=== PATIENT | male | born 1950 | race Caucasian/White ===

== ENCOUNTER 2017-10-20 18:21 | Inpatient (IN) | payer MEDICARE ==
[~2017-10-20] VITALS: Ht 180.3 cm; Wt 71.8 kg
[2017-10-20 19:08] VITALS: BP 165/89
[2017-10-20] MEDS ORDERED: Z GUARD REMEDY 2 OZ OINT TP PRN (19:30)
[2017-10-20] MEDS ORDERED: ZOLPIDEM TARTRATE 5 MG TABLET PO PRN (19:30)
[2017-10-20] MEDS ORDERED: ACETAMINOPHEN 325 MG TABLET PO PRN (19:30)
[2017-10-20] MEDS ORDERED: ONDANSETRON HCL/PF 4 MG/2 ML VIAL IVP PRN (19:30)
[2017-10-20] MEDS ORDERED: MAG HYDROX/AL HYDROX/SIMETH 30 ML UDC PO PRN (19:30)
[2017-10-20] MEDS ORDERED: MAGNESIUM HYDROXIDE 30 ML UDC PO PRN (19:30)
[2017-10-20 20:00] VITALS: BP 129/73
[2017-10-20] MEDS ORDERED: HYDR-4076 PO (20:44)
[2017-10-20] MEDS ORDERED: THIA100T70 PO (20:44)
[2017-10-20] MEDS ORDERED: SEVE800T8 PO (20:44)
[2017-10-20] MEDS ORDERED: ATOR20TA PO (20:44)
[2017-10-20] MEDS ORDERED: WARF2TAB57 PO (20:44)
[2017-10-20] MEDS ORDERED: MULT1TAB73 PO (20:44)
[2017-10-20] MEDS ORDERED: DOCU-141 PO (20:44)
[2017-10-20] MEDS ORDERED: LEVO100T9 PO (20:44)
[2017-10-20] MEDS ORDERED: ISOS60TA4 PO (20:44)
[2017-10-20] MEDS ORDERED: AMIO200T4 PO (20:44)
[2017-10-20] MEDS ORDERED: FOLI1TAB16 PO (20:44)
[2017-10-20] MEDS ORDERED: CLOP75TA15 PO (20:44)
[2017-10-20] MEDS ORDERED: ALLO100T PO (20:44)
[2017-10-20] MEDS ORDERED: LISI10TA5 PO (20:44)
[2017-10-20 21:11] VITALS: BP 129/73
[2017-10-21] VITALS: BP 147/79
[2017-10-21 04:00] VITALS: BP 169/83
[2017-10-21 06:17] LABS: BASOPHILS % (AUTO) 0.3 % (0.0-2.0); EOSINOPHILS % (AUTO) 6.4 % (0.0-6.0); HEMATOCRIT 44 % (39-51); HEMOGLOBIN 14.1 g/dL (13.5-17.5); LYMPHOCYTES # (AUTO) 1.1 /CMM (0.8-4.8); LYMPHOCYTES % (AUTO) 16.4 % (20.0-44.0); MEAN CORPUSCULAR HEMOGLOBIN 33 PG (26.0-33.0); MEAN CORPUSCULAR HGB CONC 32 g/dl (31.0-36.0); MEAN CORPUSCULAR VOLUME 103 fL (80-96); MONOCYTES # (AUTO) 0.3 /CMM (0.1-1.30); MONOCYTES % (AUTO) 5.1 % (2.0-12.0); NEUTROPHILS # (AUTO) 4.9 /CMM (1.8-8.9); NEUTROPHILS % (AUTO) 71.8 % (43.0-81.0); PLATELET COUNT (AUTO) 161 /CMM (150-450); RDW COEFFICIENT OF VARIATION 18.8 (11.5-15.0); RED BLOOD CELL COUNT(AUTO) 4.25 MIL/uL (4.5-6.0); WHITE BLOOD COUNT (AUTO) 6.8 K/uL (4.3-11.0)
[2017-10-21 06:31] LABS: CALCIUM, SERUM 8.8 mg/dL (8.5-10.1); CREATININE 5.6 mg/dL (0.6-1.3); PHOSPHORUS 6.1 mg/dL (2.5-4.9); POTASSIUM 4.1 mmol/L (3.5-5.1)
[2017-10-21 08:00] VITALS: BP 139/73
[2017-10-21 08:01] LABS: INR 1.05 (0.87-1.13)
[2017-10-21] MEDS: MULTIVITAMINS,THERAGRAN 1 UDTAB TABLET PO SCH (08:46)
[2017-10-21] MEDS: DOCUSATE SODIUM 100 MG CAPSULE PO SCH (08:47)
[2017-10-21] MEDS: hydrALAZINE HCL 25 MG TABLET PO SCH ×3 (08:47→17:17)
[2017-10-21] MEDS: SEVELAMER CARBONATE 800 MG TABLET PO SCH (08:47)
[2017-10-21] MEDS: ISOSORBIDE MONONITRATE (30MG) 30 MG TAB.SR.24H PO SCH (08:47)
[2017-10-21] MEDS: CLOPIDOGREL BISULFATE 75 MG TABLET PO SCH (08:48)
[2017-10-21] MEDS: AMIODARONE HCL 200 MG TABLET PO SCH (08:48)
[2017-10-21] MEDS: LEVOTHYROXINE SODIUM 100 MCG TABLET PO SCH (08:48)
[2017-10-21] MEDS: HYDROCODONE/APAP 5/325MG 1 EACH TABLET PO PRN ×3 (08:49→22:31)
[2017-10-21] MEDS: ALLOPURINOL 100 MG TABLET PO SCH (08:49)
[2017-10-21] MEDS: FOLIC ACID 1 MG TABLET PO SCH (08:49)
[2017-10-21] MEDS: THIAMINE HCL 100 MG TABLET PO SCH (08:49)
[2017-10-21] MEDS: LISINOPRIL (10MG) 10 MG TABLET PO SCH (08:50)
[2017-10-21 09:00] VITALS: BP 139/73
[2017-10-21] MEDS ORDERED: Medication Not On Formulary EA (Multivitamins 1 EACH) PO SCH (09:00)
[2017-10-21] MEDS ORDERED: Medication Not On Formulary EA (Atorvastatin Calcium (Lipitor) 20 MG) PO SCH (09:00)
[2017-10-21] MEDS ORDERED: Medication Not On Formulary EA (Isosorbide Mononitrate 60 MG) PO SCH (09:00)
[2017-10-21] MEDS ORDERED: LORAZEPAM INJ 2 MG/ML VIAL IV PRN (10:30)
[2017-10-21 16:00] VITALS: BP 144/71
[2017-10-21] MEDS: WARFARIN SODIUM 2 MG TABLET PO SCH (17:18)
[2017-10-21 20:00] VITALS: BP 143/71
[2017-10-21] MEDS ORDERED: LEVETIRACETAM (500MG) 500 MG in IV NS 0.9% 100 ML IV SCH (20:00)
[2017-10-21] MEDS: SIMVASTATIN 40 MG TABLET PO SCH (21:05)
[2017-10-22] VITALS: BP 119/71
[2017-10-22 04:00] VITALS: BP 128/73
[2017-10-22 06:37] LABS: BASOPHILS % (AUTO) 0.2 % (0.0-2.0); EOSINOPHILS % (AUTO) 9.5 % (0.0-6.0); HEMATOCRIT 44 % (39-51); HEMOGLOBIN 14.1 g/dL (13.5-17.5); LYMPHOCYTES # (AUTO) 1.1 /CMM (0.8-4.8); LYMPHOCYTES % (AUTO) 18.5 % (20.0-44.0); MEAN CORPUSCULAR HEMOGLOBIN 33 PG (26.0-33.0); MEAN CORPUSCULAR HGB CONC 32 g/dl (31.0-36.0); MEAN CORPUSCULAR VOLUME 102 fL (80-96); MONOCYTES # (AUTO) 0.4 /CMM (0.1-1.30); MONOCYTES % (AUTO) 6.4 % (2.0-12.0); NEUTROPHILS # (AUTO) 3.9 /CMM (1.8-8.9); NEUTROPHILS % (AUTO) 65.4 % (43.0-81.0); PLATELET COUNT (AUTO) 188 /CMM (150-450); RDW COEFFICIENT OF VARIATION 18.9 (11.5-15.0); RED BLOOD CELL COUNT(AUTO) 4.29 MIL/uL (4.5-6.0); WHITE BLOOD COUNT (AUTO) 5.9 K/uL (4.3-11.0)
[2017-10-22 07:00] LABS: CALCIUM, SERUM 8.8 mg/dL (8.5-10.1); CREATININE 6.4 mg/dL (0.6-1.3); POTASSIUM 4.3 mmol/L (3.5-5.1)
[2017-10-22 08:00] VITALS: BP 150/90
[2017-10-22] MEDS ORDERED: ACET-73 PO (08:07)
[2017-10-22] MEDS: hydrALAZINE HCL 25 MG TABLET PO SCH ×3 (09:00→17:00)
[2017-10-22] MEDS: DOCUSATE SODIUM 100 MG CAPSULE PO SCH (10:55)
[2017-10-22] MEDS: SEVELAMER CARBONATE 800 MG TABLET PO SCH (10:55)
[2017-10-22] MEDS: THIAMINE HCL 100 MG TABLET PO SCH (10:56)
[2017-10-22] MEDS: HYDROCODONE/APAP 5/325MG 1 EACH TABLET PO PRN ×2 (10:56→22:44)
[2017-10-22] MEDS: MULTIVITAMINS,THERAGRAN 1 UDTAB TABLET PO SCH (10:56)
[2017-10-22] MEDS: LEVOTHYROXINE SODIUM 100 MCG TABLET PO SCH (10:56)
[2017-10-22] MEDS: CLOPIDOGREL BISULFATE 75 MG TABLET PO SCH (10:56)
[2017-10-22] MEDS: FOLIC ACID 1 MG TABLET PO SCH (10:56)
[2017-10-22] MEDS: ALLOPURINOL 100 MG TABLET PO SCH (10:56)
[2017-10-22 10:59] LABS: INR 1.03 (0.87-1.13)
[2017-10-22 16:00] VITALS: BP 161/76
[2017-10-22] MEDS: WARFARIN SODIUM 2 MG TABLET PO SCH (17:00)
[2017-10-22 20:00] VITALS: BP 154/84
[2017-10-22] MEDS: MUPIROCIN OINT 2% 22 GM TUBE SCH (21:00)
[2017-10-22] MEDS: AMIODARONE HCL 200 MG TABLET PO SCH (21:38)
[2017-10-22] MEDS: SIMVASTATIN 40 MG TABLET PO SCH (21:38)
[2017-10-22] MEDS: ISOSORBIDE MONONITRATE (30MG) 30 MG TAB.SR.24H PO SCH (23:23)
[2017-10-23] VITALS: BP 142/89
[2017-10-23] MEDS: LISINOPRIL (10MG) 10 MG TABLET PO SCH ×2 (00:30→08:08)
[2017-10-23 04:00] VITALS: BP 134/78
[2017-10-23] MEDS: HYDROCODONE/APAP 5/325MG 1 EACH TABLET PO PRN ×2 (06:06→15:44)
[2017-10-23 06:25] LABS: BASOPHILS % (AUTO) 0.3 % (0.0-2.0); EOSINOPHILS % (AUTO) 10.7 % (0.0-6.0); HEMATOCRIT 45 % (39-51); HEMOGLOBIN 14.1 g/dL (13.5-17.5); LYMPHOCYTES # (AUTO) 0.9 /CMM (0.8-4.8); LYMPHOCYTES % (AUTO) 17.1 % (20.0-44.0); MEAN CORPUSCULAR HEMOGLOBIN 32 PG (26.0-33.0); MEAN CORPUSCULAR HGB CONC 31 g/dl (31.0-36.0); MEAN CORPUSCULAR VOLUME 103 fL (80-96); MONOCYTES # (AUTO) 0.4 /CMM (0.1-1.30); NEUTROPHILS # (AUTO) 3.6 /CMM (1.8-8.9); NEUTROPHILS % (AUTO) 64.9 % (43.0-81.0); PLATELET COUNT (AUTO) 184 /CMM (150-450); RDW COEFFICIENT OF VARIATION 18.7 (11.5-15.0); RED BLOOD CELL COUNT(AUTO) 4.42 MIL/uL (4.5-6.0); WHITE BLOOD COUNT (AUTO) 5.6 K/uL (4.3-11.0)
[2017-10-23 06:42] LABS: CREATININE 4.7 mg/dL (0.6-1.3); POTASSIUM 4.1 mmol/L (3.5-5.1)
[2017-10-23] MEDS: LEVOTHYROXINE SODIUM 100 MCG TABLET PO SCH (07:19)
[2017-10-23 08:00] VITALS: BP 137/73
[2017-10-23] MEDS: AMIODARONE HCL 200 MG TABLET PO SCH (08:08)
[2017-10-23] MEDS: CLOPIDOGREL BISULFATE 75 MG TABLET PO SCH (08:08)
[2017-10-23] MEDS: SEVELAMER CARBONATE 800 MG TABLET PO SCH (08:08)
[2017-10-23] MEDS: ALLOPURINOL 100 MG TABLET PO SCH (08:08)
[2017-10-23] MEDS: hydrALAZINE HCL 25 MG TABLET PO SCH ×2 (08:08→12:11)
[2017-10-23] MEDS: MULTIVITAMINS,THERAGRAN 1 UDTAB TABLET PO SCH (08:08)
[2017-10-23] MEDS: DOCUSATE SODIUM 100 MG CAPSULE PO SCH (08:08)
[2017-10-23] MEDS: ISOSORBIDE MONONITRATE (30MG) 30 MG TAB.SR.24H PO SCH (08:09)
[2017-10-23] MEDS: FOLIC ACID 1 MG TABLET PO SCH (08:09)
[2017-10-23] MEDS: THIAMINE HCL 100 MG TABLET PO SCH (08:10)
[2017-10-23] MEDS: MUPIROCIN OINT 2% 22 GM TUBE SCH (08:13)
[2017-10-23] MEDS ORDERED: THIA100T70 PO (08:53)
[2017-10-23 12:28] LABS: INR 1.03 (0.87-1.13)
[2017-10-23 15:41] VITALS: BP 145/79
== END 2017-10-23 16:07 | disposition home or self-care (01) | DRG 896 ==
LOC: TELE 18:36
PROC: 5A1D70Z Performance of Urinary Filtration, Intermittent, Less than 6 Hours Per Day (ICD-10-PCS; principal; 2017-10-22)
PROC: 4A00X4Z Measurement of Central Nervous Electrical Activity, External Approach (ICD-10-PCS; 2017-10-22)
DX: F10.288 Alcohol dependence with other alcohol-induced disorder (principal); N18.6 End stage renal disease; D68.59 Other primary thrombophilia; R56.9 Unspecified convulsions; I25.5 Ischemic cardiomyopathy; Z99.2 Dependence on renal dialysis; Z79.01 Long term (current) use of anticoagulants; M10.9 Gout, unspecified; F17.210 Nicotine dependence, cigarettes, uncomplicated; F03.90 Unspecified dementia, unspecified severity, without behavioral disturbance, psychotic disturbance, mood disturbance, and anxiety; E03.9 Hypothyroidism, unspecified; E78.5 Hyperlipidemia, unspecified; I48.91 Unspecified atrial fibrillation; I25.10 Atherosclerotic heart disease of native coronary artery without angina pectoris; Z95.0 Presence of cardiac pacemaker
CPT/HCPCS: 36415; 70450-TC; 80048-TC; 80061-TC; 82542; 83735-TC; 84100-TC; 85025-TC; 85610-TC; 87081-TC; 90935-TC; 95819-TC; J1953; J7030

== ENCOUNTER 2018-04-13 00:15 | Inpatient (IN) | payer MEDICARE, MEDICAID ==
[~2018-04-13] VITALS: Ht 185.4 cm; Wt 65.3 kg
[~2018-04-13 00:15] MED LIST: ACET-73 PO; ALLO100T PO; AMIO200T4 PO; ATOR20TA PO; CLOP75TA15 PO; DOCU-141 PO; FOLI1TAB16 PO; HYDR-4076 PO; ISOS60TA4 PO; LEVO100T9 PO; LISI10TA5 PO; MULT1TAB73 PO; SEVE800T8 PO; THIA100T70 PO; WARF2TAB57 PO
[2018-04-13 01:30] VITALS: BP 161/79
--- NOTE | 2018-04-13 01:30 | NUR ---
BLADE BENDER FURNACE TENDER NOTES RECEIVED PT FROM JOANNE, PT C/O FOR SOB, PT IS A&OX3. SR ON TELE HR 83. R AC #20 S/L, L UE AV FISTULA FOR HD. TEXT MARTA RE PTS ADMISSIONS ORDERS. PT ORIENTED TO ROOM. ALL NEED ANTICIPATED AND MET.PLAN OF CARE DISCUSSED WITH PT. BED IN LOW LOCKED POSITION, CALL WITH IN REACH. WILL CONT TO MONITOR.
[2018-04-13] MEDS: IPRATROPIUM NEB FS 0.5 MG/2.5 ML AMPUL.NEB NEB PRN ×3 (02:29→18:01)
[2018-04-13] MEDS: ALBUTEROL FS 2.5 MG/0.5 ML VIAL.NEB NEB PRN ×3 (02:29→18:01)
[2018-04-13] MEDS ORDERED: MAGNESIUM HYDROXIDE 30 ML UDC PO PRN (02:30)
[2018-04-13] MEDS ORDERED: HYDROCODONE/APAP 5/325MG 1 EACH TABLET PO PRN (02:30)
[2018-04-13] MEDS ORDERED: MORPHINE SULFATE INJ 4 MG/ML DISP.SYRIN IV PRN (02:30)
[2018-04-13] MEDS ORDERED: TEMAZEPAM 15 MG CAPSULE PO PRN ×2 (02:30→14:30)
[2018-04-13] MEDS ORDERED: ACETAMINOPHEN 325 MG TABLET PO PRN (02:30)
[2018-04-13] MEDS ORDERED: MAG HYDROX/AL HYDROX/SIMETH 30 ML UDC PO PRN (02:30)
[2018-04-13] MEDS ORDERED: ONDANSETRON HCL/PF 4 MG/2 ML VIAL IVP PRN (02:30)
[2018-04-13 04:00] VITALS: BP 153/89
--- NOTE | 2018-04-13 06:26 | NUR ---
RN CLOSING NO PT LYING IN BED ASLEEP, NO SOB AND ACUTE DISTRESS NOTED. ADMISSION COMPLETED. ALL NEEDS ANTICIPATED AND MET. SAFETY IS MAINTAINED AT ALL TIMES. BED IS IN LOW POSITION AND LOCKED. WILL ENDORSED TO AM SHIFT RN FOR CARLOS.
[2018-04-13 07:40] LABS: BASOPHILS % (AUTO) 0.7 % (0.0-2.0); EOSINOPHILS % (AUTO) 2.6 % (0.0-6.0); HEMATOCRIT 33 % (39-51); HEMOGLOBIN 11.2 g/dL (13.5-17.5); LYMPHOCYTES # (AUTO) 0.7 /CMM (0.8-4.8); LYMPHOCYTES % (AUTO) 13.8 % (20.0-44.0); MEAN CORPUSCULAR HGB CONC 34 g/dl (31.0-36.0); MEAN CORPUSCULAR VOLUME 102 fL (80-96); MONOCYTES # (AUTO) 0.3 /CMM (0.1-1.30); MONOCYTES % (AUTO) 6.4 % (2.0-12.0); NEUTROPHILS # (AUTO) 4.1 /CMM (1.8-8.9); NEUTROPHILS % (AUTO) 76.5 % (43.0-81.0); PLATELET COUNT (AUTO) 128 /CMM (150-450); RED BLOOD CELL COUNT(AUTO) 3.25 MIL/uL (4.5-6.0); WHITE BLOOD COUNT (AUTO) 5.3 K/uL (4.3-11.0)
[2018-04-13 08:00] VITALS: BP 159/100
--- NOTE | 2018-04-13 08:00 | NUR ---
DOYLE RN NOTE RECEIVEDIN BED , ALERT ,ORIENTED X3 , PT C/O FOR SOB, PT IS A&OX3. SR ON TELE HR 89. R AC #20 S/L, L UE AV FISTULA FOR HD. . ALL NEED ANTICIPATED AND MET.PLAN OF CARE DISCUSSED WITH PT. BED IN LOW LOCKED POSITION, CALL WITH IN REACH. WILL CONT TO MONITOR. CALLED RT TO DO BREATHING TX WILL F\U,
[2018-04-13 08:01] LABS: ALBUMIN 3.3 g/dL (3.4-5.0); BILIRUBIN,DIRECT 0.1 mg/dL (0.0-0.2); BILIRUBIN,TOTAL 0.5 mg/dL (0.2-1.0); CALCIUM, SERUM 8.8 mg/dL (8.5-10.1); CREATININE 6.5 mg/dL (0.6-1.3); MAGNESIUM 2.3 mg/dL (1.8-2.4); PHOSPHORUS 4.2 mg/dL (2.5-4.9); POTASSIUM 4.5 mmol/L (3.5-5.1); TOTAL PROTEIN, SERUM 6.2 g/dL (6.4-8.2)
[2018-04-13 08:05] LABS: THYROID STIMULATING HORMONE 6.5 uIU/mL (0.358-3.74)
[2018-04-13] MEDS ORDERED: ACET-868 PO (08:08)
[2018-04-13] MEDS ORDERED: RIVA10TA PO (08:08)
[2018-04-13] MEDS ORDERED: DONE5TAB34 PO (08:08)
[2018-04-13] MEDS ORDERED: TEMA15CA PO (08:08)
[2018-04-13] MEDS ORDERED: ESCI10TA PO (08:08)
[2018-04-13] MEDS ORDERED: QUET25TA PO (08:08)
[2018-04-13] MEDS ORDERED: METO-358 PO (08:08)
[2018-04-13] MEDS ORDERED: RANI150T8 PO (08:08)
[2018-04-13] MEDS ORDERED: CALC667C6 PO (08:08)
[2018-04-13] MEDS ORDERED: FLUT16SP16 BNOSTRILS (08:08)
[2018-04-13] MEDS ORDERED: ALBU18HF2 IH (08:08)
[2018-04-13] MEDS ORDERED: FOLI0.8T2 PO (08:09)
[2018-04-13] MEDS: PANTOPRAZOLE 40 MG TABLET.DR PO SCH (08:27)
--- NOTE | 2018-04-13 10:07 | NUR ---
DOYLE RN NOTE 2DECHO DONE CHEST X RAY DONE ORDERED
--- NOTE | 2018-04-13 11:44 | NUR ---
FLUID JET CUTTER OPERATOR NOTE DR LEBRON AWARE THAT EF 27% [id number]
--- NOTE | 2018-04-13 12:39 | NUR ---
MS RN NOTE SEEN BY DR ROBERT DISASTER RESPONSE DIRECTOR WILL BE HAVING HD TODAY
[2018-04-13] MEDS: METOPROLOL SUCCINATE 50 MG TAB.SR.24H PO SCH (14:34)
--- NOTE | 2018-04-13 14:35 | NUR ---
MS RN NOTE LILIANE ALBERTO RN HVAC DESIGN MECHANICAL ENGINEER ART BEDSIDE WITH NEW ORDER GIVEN
--- NOTE | 2018-04-13 15:19 | NUR ---
MS RN NOTE MRSA SWAB COLLECTED ORDERED
--- NOTE | 2018-04-13 15:32 | NUR ---
MS RN NOTE SPOKE WITH DOROTHY HD NURSE STATED HD NURSE WILL BE SOON
[2018-04-13 16:00] VITALS: BP 148/83
[2018-04-13] MEDS: LISINOPRIL (10MG) 10 MG TABLET PO SCH (16:30)
[2018-04-13] MEDS ORDERED: LORAZEPAM INJ 2 MG/ML VIAL IV PRN (16:30)
[2018-04-13] MEDS ORDERED: hydrALAZINE HCL 10 MG TABLET PO PRN (16:30)
--- NOTE | 2018-04-13 16:30 | NUR ---
MS RN NOTE WILL HAVE HD HOLD BP MEDS, PRINIVIL
[2018-04-13] MEDS: CALCIUM ACETATE 667 MG TABLET PO SCH (17:16)
--- NOTE | 2018-04-13 17:57 | NUR ---
MS RN NOTE NEW HL ON RT FA ARNAUD 22 INSERTED WITH GOOD BLOOD RETURN
--- NOTE | 2018-04-13 18:11 | NUR ---
MS RN NOTE C\O SOB, CALLED RT DOING BREATHING TX ORDERED ,WILL F\U
--- NOTE | 2018-04-13 18:34 | NUR ---
MS RN NOTE HAVING DINNER , ALL NEEDS ATTENDED , CALL LIGHT WITHIN REACH , NOT IN DISTRESS
--- NOTE | 2018-04-13 19:12 | NUR ---
MS RN NOTE ON HD AT THIS TIME
[2018-04-13 20:00] VITALS: BP 157/79
--- NOTE | 2018-04-13 20:00 | NUR ---
RN INITIAL NOTE RECEIVED PT IN BED, ALERT ,ORIENTED X3, HD IN PROCESS, R AC #20 S/L, L UE AV FISTULA FOR HD. ALL NEED ANTICIPATED AND MET. PLAN OF CARE DISCUSSED WITH PT. BED IN LOW LOCKED POSITION, CALL WITH IN REACH. WILL CONT TO MONITOR.
[2018-04-13] MEDS: HEPARIN SODIUM, PORCINE 5000 UNITS/1 ML VIAL SQ SCH (21:31)
[2018-04-13] MEDS: ATORVASTATIN 10 MG TABLET PO SCH (21:32)
[2018-04-13] MEDS: QUETIAPINE FUMARATE 25 MG TABLET PO SCH (21:32)
--- NOTE | 2018-04-14 06:41 | NUR ---
RN CLOSING NOTES PT LYING IN BED ASLEEP, NO SOB AND ACUTE DISTRESS NOTED. ALL NEEDS ANTICIPATED AND MET. ALL DUE MEDS GIVEN. 2000L REMOVED VIE HD. PT REFUSED AM LABS AND VS. PT STATED HE DOSE NOT WANT TO THE DISTURBED THIS EARLY. SAFETY IS MAINTAINED AT ALL TIMES. BED IS IN LOW POSITION AND LOCKED. WILL ENDORSED TO AM SHIFT RN FOR CARLOS.
[2018-04-14 08:00] VITALS: BP 137/91
--- NOTE | 2018-04-14 08:00 | NUR ---
RN NOTES RECEIVED PATIENT IN THE BED A/O X3/4. PATIENT ON O2-2L NC. PATIENT HAS NO ACUTE RESPIRATORY DISTRESS, V/S TAKEN STABLE. ENCOURAGED TO EXPRESS NEEDS AND CONCERNS. PATIENT HAS AVF ON LEFT UPPER ARM. PATIENT USING URINAL AND BATHROOM.SCHEDULED MEDICATION ADMINISTERED. CALL LIGHT WITHIN TO REACH, SAFETY PRECAUTION MAINTAINED ALL THE TIME.
[2018-04-14 08:13] LABS: EOSINOPHILS % (AUTO) 7.3 % (0.0-6.0); HEMATOCRIT 32 % (39-51); HEMOGLOBIN 10.8 g/dL (13.5-17.5); LYMPHOCYTES % (AUTO) 23.5 % (20.0-44.0); MEAN CORPUSCULAR HGB CONC 34 g/dl (31.0-36.0); MEAN CORPUSCULAR VOLUME 103 fL (80-96); MONOCYTES # (AUTO) 0.3 /CMM (0.1-1.30); MONOCYTES % (AUTO) 8.3 % (2.0-12.0); NEUTROPHILS # (AUTO) 2.4 /CMM (1.8-8.9); NEUTROPHILS % (AUTO) 59.9 % (43.0-81.0); PLATELET COUNT (AUTO) 116 /CMM (150-450); RED BLOOD CELL COUNT(AUTO) 3.13 MIL/uL (4.5-6.0); WHITE BLOOD COUNT (AUTO) 4.1 K/uL (4.3-11.0)
[2018-04-14 08:18] LABS: ALBUMIN 3.1 g/dL (3.4-5.0); BILIRUBIN,TOTAL 0.7 mg/dL (0.2-1.0); CREATININE 5.5 mg/dL (0.6-1.3); MAGNESIUM 2.1 mg/dL (1.8-2.4); PHOSPHORUS 3.5 mg/dL (2.5-4.9); POTASSIUM 4.3 mmol/L (3.5-5.1); TOTAL PROTEIN, SERUM 6.1 g/dL (6.4-8.2)
[2018-04-14] MEDS ORDERED: RIVAROXABAN 10 MG TABLET PO SCH (09:00)
--- NOTE | 2018-04-14 09:27 | NUR ---
rn notes administered narco 5/325 mg po prn for generalized pain 08/27 per patient request, v/s stable, encouraged to take po fluids as tolearted, call light within to reach, safety precaution maintained all the time.
[2018-04-14] MEDS: THIAMINE HCL 100 MG TABLET PO SCH (09:43)
[2018-04-14] MEDS: SEVELAMER CARBONATE 800 MG TABLET PO SCH (09:44)
[2018-04-14] MEDS: CLOPIDOGREL BISULFATE 75 MG TABLET PO SCH (09:44)
[2018-04-14] MEDS: LISINOPRIL (10MG) 10 MG TABLET PO SCH ×3 (09:45→19:32)
[2018-04-14] MEDS: FAMOTIDINE (20 MG) 20 MG TABLET PO SCH (09:46)
[2018-04-14] MEDS: ALLOPURINOL 100 MG TABLET PO SCH (09:46)
[2018-04-14] MEDS: ESCITALOPRAM OXALATE (10 MG) 10 MG TABLET PO SCH (09:46)
[2018-04-14] MEDS: METOPROLOL SUCCINATE 50 MG TAB.SR.24H PO SCH ×2 (09:46→15:39)
[2018-04-14] MEDS: DOCUSATE SODIUM 100 MG CAPSULE PO SCH (09:46)
[2018-04-14] MEDS: PANTOPRAZOLE 40 MG TABLET.DR PO SCH (09:46)
[2018-04-14] MEDS: DONEPEZIL 5 MG TABLET PO SCH (09:47)
[2018-04-14] MEDS: FOLIC ACID 1 MG TABLET PO SCH (09:47)
[2018-04-14] MEDS: LEVOTHYROXINE SODIUM 100 MCG TABLET PO SCH (09:47)
[2018-04-14] MEDS: HEPARIN SODIUM, PORCINE 5000 UNITS/1 ML VIAL SQ SCH ×2 (09:55→21:37)
[2018-04-14] MEDS: CALCIUM ACETATE 667 MG TABLET PO SCH ×3 (09:59→19:32)
--- NOTE | 2018-04-14 12:00 | NUR ---
RN NOTES MEDICATION WERE ADMINISTERED FOR PAIN EFFECTIVE, PATIENT RESTING IN THE BED. CONTINUED MONITORING.
[2018-04-14] MEDS ORDERED: NEPRO VAN 237 ML CAN PO PRN (15:00)
[2018-04-14 16:00] VITALS: BP_SYST 155; BP_SYST 157; BP_DIAS 88; BP_DIAS 97
--- NOTE | 2018-04-14 18:30 | NUR ---
RN NOTES PATIENT STABLE, REFUSED PAIN AT THIS TIME, SCHEDULED MEDICATION ADMINISTERED, CALL LIGHT WITHIN TO REACH, SAFETY PRECAUTION MAINTAINED ALL THE BRYS[place]. ENDORSED ONCOMING NURSE FOR PLAN OF CARE.
[2018-04-14 20:00] VITALS: BP 160/86
--- NOTE | 2018-04-14 21:09 | NUR ---
MS RN NOTES RECEIVED PT ON BED. A/O X4. ON NASAL CANNULA 2LPM SATURATING WELL. NO RESPIRATORY DISTRESS NOTED. IV ACCESS ON RAC G22. PATENT AND INTACT. HEAD OF BED ELEVATED. SIDE RAILS UP. CALL LIGHT WITHIN REACH. BED ALARM ON. WILL CONTINUE TO MONITOR PT CLOSELY.
[2018-04-14] MEDS: ATORVASTATIN 10 MG TABLET PO SCH (21:37)
[2018-04-14] MEDS: QUETIAPINE FUMARATE 25 MG TABLET PO SCH (21:37)
[2018-04-14 22:37] VITALS: BP 160/86
--- NOTE | 2018-04-14 22:48 | NUR ---
MS RN NOTES PT REFUSING DVT PUMPS. EXPLAINED RISK AND BENEFITS. PT STILL REFUSED.
[2018-04-15 04:00] VITALS: BP 160/96
--- NOTE | 2018-04-15 07:03 | NUR ---
MS RN NOTES NO ACUTE CHANGES NOTED DURING THE SHIFT. PROVIDED COMFORT AND SAFETY. WILL ENDORSE TO THE AM NURSE FOR CONTINUITY OF CARE.
[2018-04-15 08:00] VITALS: BP 160/89
[2018-04-15] MEDS: DOCUSATE SODIUM 100 MG CAPSULE PO SCH (08:42)
[2018-04-15] MEDS: LEVOTHYROXINE SODIUM 100 MCG TABLET PO SCH (08:42)
[2018-04-15] MEDS: SEVELAMER CARBONATE 800 MG TABLET PO SCH (08:43)
[2018-04-15] MEDS: PANTOPRAZOLE 40 MG TABLET.DR PO SCH (08:43)
[2018-04-15] MEDS: CLOPIDOGREL BISULFATE 75 MG TABLET PO SCH (08:43)
[2018-04-15] MEDS: THIAMINE HCL 100 MG TABLET PO SCH (08:43)
[2018-04-15] MEDS: FOLIC ACID 1 MG TABLET PO SCH (08:43)
[2018-04-15] MEDS: FAMOTIDINE (20 MG) 20 MG TABLET PO SCH (08:43)
[2018-04-15] MEDS: DONEPEZIL 5 MG TABLET PO SCH (08:43)
[2018-04-15] MEDS: ESCITALOPRAM OXALATE (10 MG) 10 MG TABLET PO SCH (08:46)
[2018-04-15] MEDS: CALCIUM ACETATE 667 MG TABLET PO SCH ×3 (08:46→17:33)
[2018-04-15] MEDS: ALLOPURINOL 100 MG TABLET PO SCH (09:00)
[2018-04-15] MEDS: HEPARIN SODIUM, PORCINE 5000 UNITS/1 ML VIAL SQ SCH ×2 (09:00→22:23)
[2018-04-15] MEDS: LISINOPRIL (10MG) 10 MG TABLET PO SCH ×2 (09:00→17:33)
--- NOTE | 2018-04-15 09:35 | NUR ---
RN AM SHIFT NOTE PATIENT IN BED ALERT AND ORIENTED. BLOOD PRESSURE 160/89 HOLD BP MEDS DUE TO DYALISIS THIS AM. CONTINUE TO MONITOR BLOOD PRESSURE. SAFETY MEASURES IN PLACE SIDE RAILS UP. CONTINUE TO MONITOR.
[2018-04-15 12:00] VITALS: BP 160/62
[2018-04-15] MEDS: METOPROLOL SUCCINATE 50 MG TAB.SR.24H PO SCH (13:18)
--- NOTE | 2018-04-15 19:37 | NUR ---
RN CLOSING NOTE PATIENT TOLERATED DYALISIS WELL, IN BED ALERT AND ORIENTED. ENCOURAGE INTAKE PER MD ORDERS. MONITOR VITALS WNL. DYALSIS WAS PERFORMED TODAY, NURSE LEFT HOSPITAL WITHOUT REPORTING HOW MANY LITERS WAS REMOVED. REPORTED TO NIGHT NURSE WE HAVE NO HD OUTPUT RECORDED. F/U TOMORROW.
[2018-04-15 20:00] VITALS: BP 142/74
--- NOTE | 2018-04-15 20:00 | NUR ---
RN NOTES RECEIVED PT ON BED. A/O X4. ON NASAL CANNULA 2LPM WITH SATURATION OF 100%. NO RESPIRATORY DISTRESS NOTED. IV ACCESS ON RAC G22. IS LEAKING AND REMOVED. HEAD OF BED ELEVATED. SIDE RAILS UP. CALL LIGHT WITHIN REACH. BED ALARM ON. WILL CONTINUE TO MONITOR PT CLOSELY.
--- NOTE | 2018-04-15 21:00 | NUR ---
RN NOTES CALLED MD DAWN ABOUT SLEEPING MEDICATION BY PATIENT'S REQUEST AND NEW ORDER OF AMBIEN 5MG PO ONCE IS IN PLACE. WILL CONTINUE TO MONITOR PATIENT CLOSELY.
[2018-04-15] MEDS ORDERED: ZOLPIDEM TARTRATE 5 MG TABLET PO ONE (22:00)
[2018-04-15] MEDS: QUETIAPINE FUMARATE 25 MG TABLET PO SCH (22:24)
[2018-04-15] MEDS: ATORVASTATIN 10 MG TABLET PO SCH (22:24)
[2018-04-16 04:00] VITALS: BP 157/93
--- NOTE | 2018-04-16 07:30 | NUR ---
RN OPENING NOTE PT WAS RECEIVED IN BED AT LOWEST AND LOCKED POSITION, A/O X4, BREATHING EVEN AND UNLABORED, NO S/S OF PAIN OR DISTRESS NOTED, SAFETY PRECAUTIONS IN PLACE, CALL LIGHT WITHIN REACH, WILL MONITOR ACCORDINGLY
[2018-04-16 08:00] VITALS: BP 160/75
[2018-04-16] MEDS: DONEPEZIL 5 MG TABLET PO SCH (08:15)
[2018-04-16] MEDS: SEVELAMER CARBONATE 800 MG TABLET PO SCH (08:15)
[2018-04-16] MEDS: PANTOPRAZOLE 40 MG TABLET.DR PO SCH (08:16)
[2018-04-16] MEDS: THIAMINE HCL 100 MG TABLET PO SCH (08:16)
[2018-04-16] MEDS: FAMOTIDINE (20 MG) 20 MG TABLET PO SCH (08:16)
[2018-04-16] MEDS: LEVOTHYROXINE SODIUM 100 MCG TABLET PO SCH (08:16)
[2018-04-16] MEDS: CLOPIDOGREL BISULFATE 75 MG TABLET PO SCH (08:16)
[2018-04-16] MEDS: ALLOPURINOL 100 MG TABLET PO SCH (08:16)
[2018-04-16] MEDS: FOLIC ACID 1 MG TABLET PO SCH (08:17)
[2018-04-16] MEDS: DOCUSATE SODIUM 100 MG CAPSULE PO SCH (08:17)
[2018-04-16] MEDS: ESCITALOPRAM OXALATE (10 MG) 10 MG TABLET PO SCH (08:17)
[2018-04-16] MEDS: CALCIUM ACETATE 667 MG TABLET PO SCH ×3 (08:17→17:08)
[2018-04-16] MEDS: LISINOPRIL (10MG) 10 MG TABLET PO SCH ×2 (08:18→17:08)
[2018-04-16] MEDS: HEPARIN SODIUM, PORCINE 5000 UNITS/1 ML VIAL SQ SCH (08:19)
[2018-04-16 09:08] LABS: EOSINOPHILS % (AUTO) 7.9 % (0.0-6.0); HEMATOCRIT 35 % (39-51); HEMOGLOBIN 11.8 g/dL (13.5-17.5); LYMPHOCYTES # (AUTO) 1.1 /CMM (0.8-4.8); LYMPHOCYTES % (AUTO) 27.6 % (20.0-44.0); MEAN CORPUSCULAR HGB CONC 33 g/dl (31.0-36.0); MEAN CORPUSCULAR VOLUME 102 fL (80-96); MONOCYTES # (AUTO) 0.3 /CMM (0.1-1.30); MONOCYTES % (AUTO) 7.5 % (2.0-12.0); NEUTROPHILS # (AUTO) 2.2 /CMM (1.8-8.9); PLATELET COUNT (AUTO) 142 /CMM (150-450); RED BLOOD CELL COUNT(AUTO) 3.47 MIL/uL (4.5-6.0); WHITE BLOOD COUNT (AUTO) 3.9 K/uL (4.3-11.0)
[2018-04-16 09:21] LABS: CALCIUM, SERUM 8.9 mg/dL (8.5-10.1); CREATININE 5.6 mg/dL (0.6-1.3); POTASSIUM 4.1 mmol/L (3.5-5.1)
[2018-04-16 12:49] VITALS: BP 160/75
[2018-04-16] MEDS: METOPROLOL SUCCINATE 50 MG TAB.SR.24H PO SCH (14:44)
[2018-04-16 16:00] VITALS: BP 159/88
--- NOTE | 2018-04-16 17:11 | NUR ---
DISCHARGE PENDING PER ELECTRICAL MAINTENANCE MAN.
--- NOTE | 2018-04-16 18:28 | NUR ---
RN CLOSING NOTE PT IN BED AT LOWEST AND LOCKED POSITION WITH SIDE RAILS UP X2, PT RESTING COMFORTABLY, BREATHING EVEN AND UNLABORED, NO S/S OF PAIN OR DISTRESS, IV PATENT AND INTACT, SAFETY PRECAUTIONS IN PLACE, CALL LIGHT WITHIN REACH, ALL NEEDS ATTENDED TO, WILL ENDORSE TO CONTROL SYSTEMS ENGINEER RN FOR CARLOS.
--- NOTE | 2018-04-16 19:18 | NUR ---
RN NOTE REPORT GIVEN TO CHRIS AT [facility] AT THIS TIME
--- NOTE | 2018-04-16 19:37 | NUR ---
rn initial notes: received report from johnny chung, pt for dc to [facility] re[facility] day rn gave report to sammie chung, pt is going to 104-a. dc paper works completed by mary ann rn, signed, awaiting bulk picker between [phone]. a/o x4, ambulatory s/p hd 04/15 with 2l output. safety precautions for fall initiated, call light in reach will continue monitoring pt.
--- NOTE | 2018-04-16 19:56 | NUR ---
DC NOTES: AMBULANCE CAM ETO DRILLING MACHINE RUNNER PT. PT AWARE OF DC, DC PAPER WORKS HANDED OVER TO EMT, REPORT GIVEN, ALL BELONGINGS SENT WITH THE PT. IV ACCESS REMOVED,PRESSURED DRESSING APPLIED. ARMBAND REMOVED. VS TAKEN AND RECORDED. PT LEFT IN STABLE CONDITION, ACCOMPANIED BY PARAMEDICS. PT WILL BE GOING TO [facility] IN ROOM [facility]-A.
[2018-04-16 20:00] VITALS: BP 148/85
== END 2018-04-16 20:07 | DRG 280 ==
LOC: TELE-TD 00:15 → MEDSG1 10:55
PROVIDERS: ADMIT Nurse Practitioner Acute Care; ATTEND Nurse Practitioner Acute Care
PROC: 5A1D70Z Performance of Urinary Filtration, Intermittent, Less than 6 Hours Per Day (ICD-10-PCS; principal; 2018-04-13)
PROC: 5A1D70Z Performance of Urinary Filtration, Intermittent, Less than 6 Hours Per Day (ICD-10-PCS; 2018-04-15)
DX: I13.2 Hypertensive heart and chronic kidney disease with heart failure and with stage 5 chronic kidney disease, or end stage renal disease (principal); N18.6 End stage renal disease; I21.A1 Myocardial infarction type 2; I50.43 Acute on chronic combined systolic (congestive) and diastolic (congestive) heart failure; J96.90 Respiratory failure, unspecified, unspecified whether with hypoxia or hypercapnia; I16.9 Hypertensive crisis, unspecified; J44.1 Chronic obstructive pulmonary disease with (acute) exacerbation; D68.59 Other primary thrombophilia; Z99.2 Dependence on renal dialysis; E03.9 Hypothyroidism, unspecified; M10.9 Gout, unspecified; D53.1 Other megaloblastic anemias, not elsewhere classified; F03.90 Unspecified dementia, unspecified severity, without behavioral disturbance, psychotic disturbance, mood disturbance, and anxiety; E78.5 Hyperlipidemia, unspecified; F17.210 Nicotine dependence, cigarettes, uncomplicated; I25.10 Atherosclerotic heart disease of native coronary artery without angina pectoris; Z86.73 Personal history of transient ischemic attack (TIA), and cerebral infarction without residual deficits; Z95.810 Presence of automatic (implantable) cardiac defibrillator; I48.0 Paroxysmal atrial fibrillation; I34.0 Nonrheumatic mitral (valve) insufficiency; F10.10 Alcohol abuse, uncomplicated
CPT/HCPCS: 36415; 71045-TC; 80048-TC; 80053-TC; 80061-TC; 80076-TC; 83735-TC; 84100-TC; 84439-TC; 84443-TC; 84484-TC; 85025-TC; 87081-TC; 90935-TC; 93307-TC; 94799-TC; G0378; J1644